=== PATIENT | female | born 1950 | race Caucasian/White ===

== ENCOUNTER 2019-10-01 08:16 | Outpatient (CLI) | payer MEDICARE ==
[2019-10-01 08:37] LABS: BASOPHILS % (AUTO) 0.9 %; EOSINOPHILS # (AUTO) 0.1 10^3/uL (0.0-0.7); HGB - HEMOGLOBIN 13.5 g/dL (12.0-16.0); LYMPHOCYTES # (AUTO) 1.9 10^3/uL (1.5-3.5); LYMPHOCYTES % (AUTO) 43.6 %; MEAN CORPUSCULAR HEMOGLOBIN 32.3 pg (27.0-31.0); MEAN CORPUSCULAR HGB CONC 33.8 g/dL (32.0-36.0); MEAN CORPUSCULAR VOLUME 95.5 fL (81.0-99.0); MEAN PLATELET VOLUME 10.6 fL (7.9-10.8); MONOCYTES # (AUTO) 0.5 10^3/uL (0.0-1.0); MONOCYTES % (AUTO) 10.3 %; NEUTROPHILS # (AUTO) 1.9 10^3/uL (1.5-6.6); PLT - PLATELET COUNT 228 10^3/uL (130-450); RED BLOOD COUNT 4.18 10^6/uL (4.20-5.40); RED CELL DISTRIBUTION WIDTH 12.8 % (12.0-15.0); WHITE BLOOD COUNT 4.5 x10^3/uL (4.8-10.8)
[2019-10-01 08:47] LABS: ALBUMIN 4.1 g/dL (3.2-5.5); ALBUMIN/GLOBULIN RATIO 1.6 (1.0-2.2); ALKALINE PHOSPHATASE 71 IU/L (42-121); ALT ALANINE AMINOTRANSFERASE 13 IU/L (10-60); AST ASPARTATE AMINOTRANSFERASE 15 IU/L (10-42); BILIRUBIN,TOTAL 1.6 mg/dL (0.2-1.0); BUN - BLOOD UREA NITROGEN 11 mg/dL (6-20); CALCIUM 9.2 mg/dL (8.5-10.3); CARBON DIOXIDE - CO2 26 mmol/L (21-32); CHLORIDE 106 mmol/L (101-111); CREATININE 0.6 mg/dL (0.4-1.0); CRP - C-REACTIVE PROTEIN < 1.0 mg/dL (0-1.0); GLUCOSE 99 mg/dL (70-100); SODIUM 139 mmol/L (135-145); TOTAL PROTEIN 6.6 g/dL (6.7-8.2)
== END 2019-10-01 08:17 | disposition home or self-care (01) ==
LOC: LAB 08:16
PROVIDERS: ATTEND Nurse Practitioner
DX: R13.10 Dysphagia, unspecified (principal)
CPT/HCPCS: 36415; 80053; 85025; 85651; 86140

== ENCOUNTER 2019-10-12 06:18 | Day surgery (SDC) | payer MEDICARE ==
[2019-10-12] MEDS ORDERED: fentaNYL 250 MCG/5 ML VIAL IVP ONE (06:19)
[2019-10-12] MEDS ORDERED: MIDAZOLAM 2 MG/2 ML VIAL IVP ONE (06:19)
[2019-10-12] MEDS ORDERED: LACTATED RINGERS 1,000 ML IV ONE ×2 (06:42→08:41)
[2019-10-12] MEDS ORDERED: LIDO GARGLE 30 ML BOTTLE ONE (07:20)
[2019-10-12] MEDS ORDERED: LIDO GARGLE 30 ML BOTTLE PO ONE (07:51)
[2019-10-12 09:11] VITALS: BP 125/52
== END 2019-10-12 06:19 | disposition home or self-care (01) ==
LOC: SDS 06:18
PROVIDERS: ATTEND Internal Medicine Gastroenterology
PROC: 0DJD8ZZ Inspection of Lower Intestinal Tract, Via Natural or Artificial Opening Endoscopic (ICD-10-PCS; principal; 2019-10-12 07:30)
PROC: 0DB48ZX Excision of Esophagogastric Junction, Via Natural or Artificial Opening Endoscopic, Diagnostic (ICD-10-PCS; 2019-10-12 07:30)
DX: Z12.11 Encounter for screening for malignant neoplasm of colon (principal); K21.0 Gastro-esophageal reflux disease with esophagitis; K44.9 Diaphragmatic hernia without obstruction or gangrene; R13.10 Dysphagia, unspecified; Z79.899 Other long term (current) drug therapy; Z87.891 Personal history of nicotine dependence
CPT/HCPCS: 43239; A9270; G0121; J3010; J7120

== ENCOUNTER 2019-10-30 13:13 | Outpatient (CLI) | payer MEDICARE ==
--- NOTE | 2019-10-30 16:31 | XRAY Report ---
PROCEDURE: Hip w/Pelvis 2-3V RT INDICATIONS: RT HIP PAIN, RT FOOT PAIN TECHNIQUE: AP pelvis with frog-leg lateral view of the right hip. COMPARISON: None. FINDINGS: Bones: No acute fractures or dislocations. Mild symmetric degenerative changes in the hips with mil d marginal osteophyte formation. Pelvic ring appears intact. No suspicious bony lesions. Degenerati ve changes are seen in the spine that are worse on the right. Soft tissues: The visualized bowel gas pattern is normal. Phleboliths are noted in the pelvis. IMPRESSION: No acute osseous abnormality. Mild symmetric degenerative changes in the hips. Degenerat darlin changes are also seen in the included lower lumbar spine. Reviewed by: Jonathan Blake MD on 10/30/2019 4:30 PM PDT Approved by: Jonathan Blake MD on 10/30/2019 4:30 PM PDT Station ID: [id number]
--- NOTE | 2019-10-30 16:32 | XRAY Report ---
PROCEDURE: Foot 3 View RT INDICATIONS: RT HIP PAIN, RT FOOT PAIN TECHNIQUE: 3 views of the foot were acquired. COMPARISON: None. FINDINGS: Bones: No acute fractures or dislocations. No suspicious bony lesions. A small plantar calcaneal s pur is present. Soft tissues: No suspicious soft tissue calcification. IMPRESSION: No acute fracture or dislocation. Small plantar calcaneal spur. Reviewed by: Jonathan Blake MD on 10/30/2019 4:31 PM PDT Approved by: Jonathan Blake MD on 10/30/2019 4:31 PM PDT Station ID: [id number]
== END 2019-10-30 13:14 | disposition home or self-care (01) ==
LOC: DI 13:13
PROVIDERS: ATTEND Nurse Practitioner Family
DX: M16.0 Bilateral primary osteoarthritis of hip (principal); M47.816 Spondylosis without myelopathy or radiculopathy, lumbar region; M77.31 Calcaneal spur, right foot

== ENCOUNTER 2020-02-15 09:54 | Outpatient (CLI) | payer MEDICARE ==
--- NOTE | 2020-02-15 10:24 | XRAY Report ---
PROCEDURE: Chest 2 View X-Ray INDICATIONS: DYSPNEA TECHNIQUE: 2 view(s) of the chest. COMPARISON: None. FINDINGS: Surgical changes and devices: None. Lungs and pleura: No pleural effusions or pneumothorax. Lungs are clear. Mediastinum: Mediastinal contours are normal. Heart size is normal. Bones and chest wall: No suspicious bony abnormalities. Soft tissues appear unremarkable. IMPRESSION: No acute cardiopulmonary process demonstrated radiographically. Reviewed by: Shaka Sethi MD on 02/15/2020 9:22 AM [facility] Approved by: Shaka Sethi MD on 02/15/2020 9:22 AM [facility] Station ID: [id number]
== END 2020-02-15 09:55 | disposition home or self-care (01) ==
LOC: DI 09:54
PROVIDERS: ATTEND Nurse Practitioner Family
DX: R06.00 Dyspnea, unspecified (principal)

== ENCOUNTER 2020-02-17 10:11 | Outpatient (CLI) | payer MEDICARE ==
--- NOTE | 2020-02-17 11:31 | Ultrasound Report ---
PROCEDURE: Head or Neck Soft Tissue INDICATIONS: ABN RESULTS OF THYROID FUNCTION STUDIES TECHNIQUE: Real-time scanning was performed of the thyroid gland, with image documentation. COMPARISON: None. FINDINGS: Right thyroid lobe measures 1.5 x 2.3 x 4.9 cm. The left thyroid lobe measures 1.7 x 1.9 x 4.9 cm. Th ere are innumerable bilateral thyroid nodules, most of which are hypoechoic with cystic spaces sugges tive of colloid. There is no overtly suspicious nodule to warrant FNA. IMPRESSION: Innumerable bilateral thyroid nodules consistent with multinodular goiter Reviewed by: Shaka Sethi MD on 02/17/2020 10:29 AM [facility] Approved by: Shaka Sethi MD on 02/17/2020 10:29 AM [facility] Station ID: [id number]
== END 2020-02-17 10:12 | disposition home or self-care (01) ==
LOC: DI 10:11
PROVIDERS: ATTEND Nurse Practitioner Family
DX: E04.2 Nontoxic multinodular goiter (principal)

== ENCOUNTER 2020-04-08 15:29 | Outpatient (CLI) | payer MEDICARE ==
--- NOTE | 2020-04-11 16:42 | Mammography Report ---
BILATERAL DIGITAL SCREENING MAMMOGRAM 3D/2D: 04/08/2020 CLINICAL: Routine screening. Comparison is made to exams dated: 06/03/2007 mammogram and 09/26/2006 mammogram - [facility]. There are scattered fibroglandular elements in both breasts. No significant masses, calcifications, or other findings are seen in either breast. There has been no significant interval change. IMPRESSION: NEGATIVE There is no mammographic evidence of malignancy. A 1 year screening mammogram is recommended. This exam was interpreted at Station ID: [id number]. NOTE: For mammograms, a report in lay terms will be sent to the patient. Approximately 15% of breast malignancies will not be visualized mammographically. In the management of a palpable breast mass, a negative mammogram must not discourage biopsy of a clinically suspicious lesion. Electronically Signed By: Jonathan Blake M.D. ar/penrad:04/08/2020 16:52:05 ACR BI-RADS Category 1: Negative 3341F PARENCHYMAL PATTERN: (A) - The breast(s) demonstrate(s) scattered fibroglandular densities. BI-RADS CATEGORY: (1) - 1 RECOMMENDATION: (ANNUAL) - Recommend routine annual screening mammography. [id number] 1 year screening LATERALITY: (B)
== END 2020-04-08 15:30 | disposition home or self-care (01) ==
LOC: DI 15:29
PROVIDERS: ATTEND Nurse Practitioner Family
DX: Z12.31 Encounter for screening mammogram for malignant neoplasm of breast (principal)

== ENCOUNTER 2020-08-15 09:34 | Outpatient (CLI) | payer MEDICARE ==
[2020-08-24 11:52] VITALS: BP 120/70
--- NOTE | 2020-08-24 11:52 | SLEEP CARE CONSULTATION ---
Information from patient questionnaire entered by Alize Burris. I have reviewed and concur with the information entered by Alize Burris. This document represents the service I personally performed and the decisions made by me, Birgit Fu MD, [facility]. History of Present Illness Service Date and Time: 08/15/2020 0934 Reason for Visit: New patient Chief Complaint: reports: Unrefreshed sleep, Fatigue Date of Onset: fatigue - 2 years, extreme fatigue - 9 months Usual bedtime: 10 pm Time it takes to fall asleep: 30 nminutes Snores at night: No Observed to quit breathing while asleep: No Number of times waking at night: 1 Reasons for waking at night: reports: Bathroom, Other (dog needs to go outside) Toss, Turn, or Twitch while sleeping: No Recalls having dreams: Yes Usually gets out of bed at: 7 am Feels refreshed in the morning: No Morning headache: Yes Sleepy or fatigued during the day: Yes Ever fallen asleep while driving: No Takes day naps: Yes (when possible) Prior sleep studies: No Additional HPI information: I have the pleasure of seeing Ms. Cardenas today regarding the possibility of her having obstructive sleep apnea. As you know, she is a 69 year old lady who complains of unrefreshed sleep and persistent fatigue for about 2 years. The patient tells me that she normally goes to bed around 10 pm, and it takes her approximately 30 minutes to fall asleep. She has not been told that she snores loudly or irregularly at night. She has never been observed to stop breathing in her sleep. However, she sleeps alone. She can recall waking up on the average of 1 time during the night. Most of the time she wakes up because of having to use the bathroom. She has never awakened because of her own snoring, choking, or having to gasp for air. There is not a lot of tossing and turning in her sleep. No somniloquy (sleep talking) or somnambulism (sleep walking). Generally, she can recall having dreams. In the morning she usually gets up out of the bed around 7 a.m. not feeling refreshed nor rested. She usually has a morning headache that goes away with a cup of coffee. During the day she complains of feeling fatigued. Her score on [place] Sleepiness Scale is 3 out o f 24. She never has fallen asleep while driving nor has had any accident due to sleepiness. She usually takes a nap during the day. Upon falling asleep during the day she denies having vivid dreams. She has never had sleep paralysis, experienced cataplexy or symptoms of restless leg syndrome. She reports having impaired concentration during the day. 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 Patient is Single and lives in [place]. Have you smoked in the past 12 months: No Cigarettes per day (20/pack): 20 Years of smokin Quit date: 1984 Smoking Pack Years: 12.0 Alcohol use: Yes Alcohol amount and frequency: 1 drink nightly Caffeine use: Yes Caffeine amount and frequency: 4 cups daily Family History Family history of sleep disordered breathing: Yes Family Hx Sleep Apnea: Mother: Snoring, Father: Snoring, Sibling: Sleep apnea - Treated Allergies and Home Medications Drug allergies reviewed: Yes Home medication list reviewed: Yes Review of Systems Weight loss over past 5 years: 20 (but regained with medication for hyperthyroidism Cardiovascular: denies: high blood pressure, palpitations, chest pain, irregular heart rate or pulse, leg or foot swelling, have to sleep sitting up, other Respiratory: denies: shortness of breath, wheeze, sputum production, chronic cough, other Gastrointestinal: reports: heartburn, diarrhea Urinary: denies: incontinence, frequency, urgency, impotence, other Neurological: reports: headaches Psychiatric: denies: Attention Deficit Hyperactivity, anxiety, depression, mood disorder, claustrophobia, other Ear/Nose/Throat: reports: nasal congestion, wisdom teeth removed Endocrine: reports: thyroid disease, sluggishness, too hot or cold Musculoskeletal: reports: joint pain, neck pain, back pain Immunologic: reports: sneezing Physical Exam Vital signs obtained and entered by: Dr. Fu Blood Pressure: 120/70 Cuff size: regular Heart Rate: 79 O2 Saturation: 97 Height: 5 ft 8 in Weight: 196 lb Body Mass Index: 29.7 BMI Classification: Overweight Neck circumference: 13.5 Mood/affect: normal HEENT: No craniofacial malformation Nostrils: patent to airflow Impression and Plan IMPRESSION: 1. Fatigue, for the past two years, most likely multifactorial Sleep may or may not be a contributing factor as she is not sleepy during the day ([place] Sleepiness Scale score is = 1 only). However, sleep disrupting conditions should be ruled out. Narrow oropharynx and obesity are common predisposing factors for obstructive sleep apnea-hypopnea syndrome. I recommend proceeding to polysomnography to confirm the diagnosis and to assess severity. If she has significant sleep disordered breathing, a manual CPAP titration study will also be performed to find the optimal treatment pressure. I informed the patient of what the sleep studies involve and after some discussion, she agreed to proceed. Plan: 1. Schedule polysomnography and return in 1 to 2 weeks after the study to discuss result and initiate therapy. Visit Type: In Office Time Spent with Patient (minutes): 15 Provider Statement: I spent 100% of the Face to Face Visit with the patient with greater than 50% spent counseling the patient and coordination of care.
== END 2020-08-15 09:35 | disposition home or self-care (01) ==
LOC: SC 09:34
PROVIDERS: ATTEND Internal Medicine Pulmonary Disease
DX: R53.83 Other fatigue (principal); E66.3 Overweight; Z68.29 Body mass index [BMI] 29.0-29.9, adult
CPT/HCPCS: 99202; G0463; 99212

== ENCOUNTER 2020-10-12 19:17 | Outpatient (CLI) | payer MEDICARE | END 2020-10-12 19:18 | disposition home or self-care (01) | LOC: SC 19:17 | PROVIDERS: ATTEND Internal Medicine Pulmonary Disease | DX: R53.83 Other fatigue (principal); G47.8 Other sleep disorders; R51.9 Headache, unspecified | CPT/HCPCS: 95810 ==

== ENCOUNTER 2020-11-01 09:05 | Outpatient (CLI) | payer MEDICARE ==
--- NOTE | 2020-11-01 09:54 | SLEEP CARE CONSULTATION ---
Information from patient questionnaire entered by Alize Burris. I have reviewed and concur with the information entered by Alize Burris. This document represents the service I personally performed and the decisions made by , Milli Jenkins ARNP. History of Present Illness Service Date and Time: 11/01/2020904 Initial [place] Sleepiness Scale score: 3 (in 2020) Current [place] Sleepiness Scale score: 3 Additional HPI information: DARRYL LLANOS returns for follow up and results of the recently performed polysomnography. The patient was informed of the following findings: No significant sleep disordered breathing with an average AHI of 2.2 and a junior oxygen saturation of 89%. She did not sleep supine during her study. I explained the pathophysiology behind obstructive sleep apnea. Patient does not have sleep apnea and was advised how weight gain could increase the risk of developing sleep apnea in the future. Patient has light to moderate snoring. Snoring can be reduced by weight loss. Weight loss is best achieved with diet consult. Patient instructed to contact PCP for referral. Snoring can also be treated with an oral appliance from a dentist. Advised to check insurance coverage. In addition, an ENT evaluation can be do to see if other treatment is indicated. Patient counseled not drink alcohol less than 4 hours before bedtime as it can increase snoring and apnea. Patient was cautioned about risks of drowsy driving until sleepiness symptoms resolve. Sleep Study - Results Type of Sleep Study: Polysomnography Prior sleep studies: No Polysomnography/Home Sleep Study results: IMPRESSION: The quality of the study is good. The patient had reduced sleep efficiency due to a prolonged awakening in the middle of the night. The sleep architecture was relatively normal considering the first-night effect. Respiratory monitoring showed no significant sleep disordered breathing (AHI = 2.2) or hypoxia (junior oxygen saturation of 89%). The patient did not sleep supine during this study (supine AHI = 0.0; non-supine = 2.24). Snore was light to moderate in intensity. There was no significant periodic leg movement of sleep. Cardiac rhythm was normal sinus rhythm without significant arrhythmia. No abnormal behavior (parasomnia) observed during the night. Allergies and Home Medications Home medication list reviewed: Yes (no changes) Review of Systems Review of systems same as previous: Yes (no changes) Physical Exam Heart Rate: 75 O2 Saturation: 96 Height: 5 ft 8 in Weight: 201 lb Body Mass Index: 30.5 BMI Classification: Obese Impression and Plan 1. Fatigue, unspecified. Possibly multi-factorial. Patient sleep study showing no sleep disordered breathing with an AHI of 2.2 sleeping mainly non-supine. She did not sleep supine during the study. We cannot rule out sleep apnea when sleeping supine. Patient mainly sleeps non-spine so this may not be contributing to her fatigue. She may follow up with her PCP for further evaluation of her fatigue. 2. Snoring but no significant sleep disordered breathing. Patient advised that often weight loss will reduce snoring as well as apnea risk. An oral appliance can also be used for snoring. This would require a dental consultation. Patient cautioned not to use other online appliances as can cause bite issues. A list of accredited dentists in area and one local dentist who makes oral appliances available in office. Patient is advised to check if insurance will cover. An ENT consult can also be helpful to determine if any other treatment is an option. * Follow up with PCP as needed for fatigue * Attempt to lose weight * Avoid alcohol consumption near bedtime * The patient is cautioned about driving until sleepiness is completely resolved. * Return as needed. Counseling Topics: Weight loss health impact Visit Type: In Office Time Spent with Patient (minutes): 14 Provider Statement: I spent 100% of the Face to Face Visit with the patient with greater than 50% spent counseling the patient and coordination of care.
== END 2020-11-01 09:06 | disposition home or self-care (01) ==
LOC: SC 09:05
PROVIDERS: ATTEND Nurse Practitioner Family
DX: R53.83 Other fatigue (principal); R06.83 Snoring; E66.9 Obesity, unspecified; Z68.30 Body mass index [BMI] 30.0-30.9, adult
CPT/HCPCS: 99212; G0463

== ENCOUNTER 2021-02-15 13:48 | Outpatient (CLI) | payer MEDICARE ==
[2021-02-15 14:30] LABS: ALBUMIN 4.4 g/dL (3.2-5.5); BILIRUBIN,DIRECT 0.1 mg/dL (0.1-0.5); TOTAL PROTEIN 6.6 g/dL (6.7-8.2)
== END 2021-02-15 13:49 | disposition home or self-care (01) ==
LOC: LAB 13:48
PROVIDERS: ATTEND Internal Medicine Endocrinology, Diabetes & Metabolism
DX: E05.90 Thyrotoxicosis, unspecified without thyrotoxic crisis or storm (principal)
CPT/HCPCS: 36415; 80076; 81599; 83520; 84481

== ENCOUNTER 2021-05-10 08:07 | Outpatient (CLI) | payer MEDICARE ==
[2021-05-10 08:23] LABS: BASOPHILS # (AUTO) 0.1 10^3/uL (0.0-0.1); BASOPHILS % (AUTO) 0.9 %; EOSINOPHILS # (AUTO) 0.1 10^3/uL (0.0-0.7); EOSINOPHILS % (AUTO) 1.8 %; HCT - HEMATOCRIT 41.3 % (37.0-47.0); HGB - HEMOGLOBIN 13.9 g/dL (12.0-16.0); LYMPHOCYTES # (AUTO) 2.7 10^3/uL (1.5-3.5); LYMPHOCYTES % (AUTO) 48.3 %; MEAN CORPUSCULAR HGB CONC 33.7 g/dL (32.0-36.0); MEAN CORPUSCULAR VOLUME 98.1 fL (81.0-99.0); MEAN PLATELET VOLUME 10.2 fL (7.9-10.8); MONOCYTES # (AUTO) 0.4 10^3/uL (0.0-1.0); MONOCYTES % (AUTO) 7.5 %; NEUTROPHILS # (AUTO) 2.3 10^3/uL (1.5-6.6); NEUTROPHILS % (AUTO) 41.5 %; PLT - PLATELET COUNT 257 10^3/uL (130-450); RED BLOOD COUNT 4.21 10^6/uL (4.20-5.40); RED CELL DISTRIBUTION WIDTH 12.9 % (12.0-15.0); WHITE BLOOD COUNT 5.5 x10^3/uL (4.8-10.8)
[2021-05-10 08:44] LABS: % IRON SATURATION 25 % (20-50); ALBUMIN 4.3 g/dL (3.2-5.5); ALBUMIN/GLOBULIN RATIO 1.7 (1.0-2.2); ALKALINE PHOSPHATASE 96 IU/L (42-121); ALT ALANINE AMINOTRANSFERASE 12 IU/L (10-60); AST ASPARTATE AMINOTRANSFERASE 17 IU/L (10-42); BILIRUBIN,TOTAL 1.1 mg/dL (0.2-1.0); BUN - BLOOD UREA NITROGEN 8 mg/dL (6-20); CALCIUM 9.3 mg/dL (8.5-10.3); CARBON DIOXIDE - CO2 25 mmol/L (21-32); CHLORIDE 107 mmol/L (101-111); CREATININE 0.8 mg/dL (0.4-1.0); GFR - MDRD 71 (>89); GLUCOSE 94 mg/dL (70-100); IRON 103 ug/dL (28-170); POTASSIUM 4.1 mmol/L (3.5-5.0); SODIUM 141 mmol/L (135-145); TOTAL IRON BINDING CAPACITY 420 ug/dL (250-450); TOTAL PROTEIN 6.9 g/dL (6.7-8.2); TRANSFERRIN 300 mg/dL (192-382)
[2021-05-10 08:45] LABS: CRP - C-REACTIVE PROTEIN < 1.0 mg/dL (0-1.0)
[2021-05-10 08:56] LABS: THYROID STIMULATING HORMONE 4.35 uIU/mL (0.34-5.60)
[2021-05-10 08:58] LABS: FREE T4 (FREE THYROXINE) 0.83 ng/dL (0.58-1.64)
== END 2021-05-10 08:08 | disposition home or self-care (01) ==
LOC: LAB 08:07
PROVIDERS: ATTEND Internal Medicine Endocrinology, Diabetes & Metabolism
DX: R51.9 Headache, unspecified (principal); D75.89 Other specified diseases of blood and blood-forming organs; E05.90 Thyrotoxicosis, unspecified without thyrotoxic crisis or storm
CPT/HCPCS: 36415; 80053; 81599; 83520; 83540; 84439; 84443; 84466; 85025; 85651; 86140

== ENCOUNTER 2021-06-13 08:49 | Outpatient (CLI) | payer MEDICARE ==
--- NOTE | 2021-06-13 17:49 | CT Report ---
PROCEDURE: Sinuses INDICATIONS: FACIAL PAIN, HEADACHE, CHRONIC PANSINUSITIS TECHNIQUE: Noncontrast 3.0 mm axial images acquired from the frontal sinuses to the mid-sella, with coronal and sagittal reformats. For radiation dose reduction, the following was used: automated exposure control , adjustment of mA and/or kV according to patient size. COMPARISON: None. FINDINGS: Image quality: Excellent. Maxillary Sinuses: No bony remodeling or destruction. Sinuses are clear. Ethmoid Air Cells: No bony remodeling or destruction. Sinuses are clear. Sphenoid Sinuses: No bony remodeling or destruction. Sinuses are clear. Frontal Sinuses: No bony remodeling or destruction. Sinuses are clear. Ostiomeatal Complexes: Ostiomeatal complexes are patent, yet they are constitutionally narrowed, wit h bilateral Brenna cells. Miscellaneous: Visualized intra-orbital contents are normal. Bilateral renée bullosa can be seen. T he left conchal bullosa is opacified. There is mild rightward nasal septal deviation. Focal degenerat darlin change can be seen involving both temporomandibular joints. IMPRESSION: No significant active paranasal sinus disease is seen. Constitutionally narrowed ostiomeatal complexes, with bilateral Brenna cells. Mild lateral renée bullosa can be seen. The left conchal bullosa is opacified. Mild rightward nasal septal deviation is seen. Focal improvement of degenerative change can be seen. Reviewed by: Flo Bailey MD on 06/13/2021 4:47 PM [id number] Approved by: Flo Bailey MD on 06/13/2021 4:47 PM [facility] Station ID: [id number]
== END 2021-06-13 08:50 | disposition home or self-care (01) ==
LOC: DI 08:49
PROVIDERS: ATTEND Otolaryngology
DX: R51.9 Headache, unspecified (principal)

== ENCOUNTER 2021-07-13 07:53 | Outpatient (CLI) | payer MEDICARE ==
[2021-07-13 08:41] LABS: THYROID STIMULATING HORMONE 3.65 uIU/mL (0.34-5.60)
[2021-07-13 08:43] LABS: FREE T4 (FREE THYROXINE) 0.84 ng/dL (0.58-1.64)
== END 2021-07-13 07:54 | disposition home or self-care (01) ==
LOC: LAB 07:53
PROVIDERS: ATTEND Internal Medicine Endocrinology, Diabetes & Metabolism
DX: E05.90 Thyrotoxicosis, unspecified without thyrotoxic crisis or storm (principal)
CPT/HCPCS: 36415; 84439; 84443

== ENCOUNTER 2021-07-24 09:55 | Outpatient (CLI) | payer MEDICARE ==
--- NOTE | 2021-07-24 13:09 | MRI Report ---
PROCEDURE: MRI cervical spine without contrast INDICATIONS: POSTMENOPAUSAL, CERVICAL SPINE STENOSIS TECHNIQUE: Noncontrast sagittal T1 spin echo and T2 fast spin echo, sagittal STIR, foraminal oblique sagittal T2 fast spin echo, and axial gradient echo or T2 fast spin echo through the cervical spine. COMPARISON: None. FINDINGS: Image quality: Excellent. Alignment and Curvature: There is normal bony alignment. Bone Marrow: Marrow demonstrates normal overall signal. Spinal Cord: Visualized spinal cord has normal size and signal. No cerebellar tonsillar herniation. Paraspinous Soft Tissues: No paravertebral masses. Prevertebral soft tissues are normal in thicknes s. C2-C3: Disc height is preserved. No central or foraminal stenosis. C3-C4: Disc space narrowing and posterior disc osteophyte complex results in mild central stenosis. No foraminal stenosis. C4-C5: Disc space narrowing with posterior disc osteophyte complex results in mild to moderate centr al stenosis. No right foraminal stenosis. Moderate left foraminal stenosis. C5-C6: Disc space narrowing and posterior disc osteophyte complex results in moderate central stenos is with flattening the ventral cervical cord. Mild left and no right foraminal stenosis. C6-C7: Disc space narrowing and posterior disc aspect complex results in mild central stenosis. No f oraminal stenosis. C7-T1: Normal in appearance. IMPRESSION: Multilevel degenerative disc disease and arthropathy results in varying degrees of central and forami nal stenosis including moderate central stenosis at C5-6 Reviewed by: Brent Yeh MD on 07/24/2021 12:08 PM [facility] Approved by: Brent Yeh MD on 07/24/2021 12:08 PM [facility] Station ID: [id number]
--- NOTE | 2021-07-24 17:14 | DEXA Report ---
PROCEDURE: Dexa Spine and/or Hip INDICATIONS: POSTMENOPAUSAL, CERVICAL SPINE STENOSIS TECHNIQUE: Dual energy x-ray absorptiometry (DXA) was performed on a [employer] System. Regions measur ed are the AP Spine, femoral neck, and if needed forearm. COMPARISON: None. FINDINGS: Lumbar Spine: Bone Mineral Density 1.159 g/cm/cm,T score -0.2 Left Hip: Bone Mineral Density 0.853 g/cm/cm,T score -1.2 Left Femoral Neck: Bone Mineral Density 0.845 g/cm/cm, T score -1.4 (T score greater or equal to -1.0: NORMAL) (T score from -1.1 to -2.4: OSTEOPENIA) (T score less than or equal to -2.5 to: OSTEOPOROSIS) Impression: Osteopenia Patients with diagnosis of osteoporosis or osteopenia should have regular bone mineral density assess ment. For those eligible for Medicare, routine testing is allowed once every 2 years. Testing frequ ency can be increased for patients who have rapidly progressing disease or for those who are receivin g medical therapy to restore bone mass. Reviewed by: Reji Lewis MD on 07/24/2021 5:12 PM PDT Approved by: Reji Lewis MD on 07/24/2021 5:12 PM PDT Station ID: [id number]
== END 2021-07-24 09:56 | disposition home or self-care (01) ==
LOC: DI 09:55
PROVIDERS: ATTEND Nurse Practitioner Family
DX: Z78.0 Asymptomatic menopausal state (principal); M85.89 Other specified disorders of bone density and structure, multiple sites; M47.812 Spondylosis without myelopathy or radiculopathy, cervical region; M99.71 Connective tissue and disc stenosis of intervertebral foramina of cervical region; M48.02 Spinal stenosis, cervical region

== ENCOUNTER 2021-08-25 08:26 | Outpatient (CLI) | payer MEDICARE ==
[2021-08-25 09:48] LABS: BILIRUBIN,DIRECT 0.1 mg/dL (0.1-0.5); BILIRUBIN,TOTAL 1.1 mg/dL (0.2-1.0)
[2021-08-25 09:50] LABS: FERRITIN 16.4 ng/mL (11.0-306.8)
--- NOTE | 2021-08-25 11:35 | XRAY Report ---
PROCEDURE: Hips 4V BILAT INDICATIONS: LEFT HIP PAIN, LOW BACK PAIN TECHNIQUE: 4 views of the right hip and left hip were acquired. COMPARISON: 11/30/2019. FINDINGS: Bones: No fractures or dislocations. No suspicious bony lesions. The visualized pelvic ring appear s intact. Mild bilateral hip osseous hypertrophy compatible with mild osteoarthritis. Soft tissues: No suspicious soft tissue masses. Phleboliths. IMPRESSION: Mild bilateral hip osteoarthritis. Reviewed by: Esther Crain MD, PhD on 08/25/2021 11:34 AM PDT Approved by: Esther Crain MD, PhD on 08/25/2021 11:34 AM PDT Station ID: [id number]
--- NOTE | 2021-08-25 11:37 | XRAY Report ---
PROCEDURE: Lumbar Spine 2 View INDICATIONS: LEFT HIP PAIN, LOW BACK PAIN TECHNIQUE: 2 views of the lumbar spine were acquired. COMPARISON: None. FINDINGS: Bones: 5 [id number] vertebrae are present. There is approximate 5 mm of L3-L4 retrolisthesis. There is mild convex right lumbar spine scoliosis. No vertebral body compression fractures. No suspi cious bony lesions. Moderate degenerative changes noted throughout the lumbar spine. Moderate L5-S1 f acet hypertrophy. Mild L1-L2, L2-L3 F L4 and L4-L5 facet hypertrophy. Soft tissues: Overlying bowel gas pattern is normal. No suspicious soft tissue calcifications. IMPRESSION: 1. Multilevel degenerative disc disease. 2. Multilevel facet arthropathy. 3. No fracture. No acute osseous lesion. If there is continued clinical concern for pathology, then M RI should be considered for further evaluation. Reviewed by: Esther Crain MD, PhD on 08/25/2021 11:36 AM PDT Approved by: Esther Crain MD, PhD on 08/25/2021 11:36 AM PDT Station ID: [id number]
== END 2021-08-25 08:27 | disposition home or self-care (01) ==
LOC: DI 08:26
PROVIDERS: ATTEND Nurse Practitioner Family
DX: M16.0 Bilateral primary osteoarthritis of hip (principal); M47.816 Spondylosis without myelopathy or radiculopathy, lumbar region; M47.817 Spondylosis without myelopathy or radiculopathy, lumbosacral region; M51.36 Other intervertebral disc degeneration, lumbar region; M41.9 Scoliosis, unspecified; M51.37 Other intervertebral disc degeneration, lumbosacral region; M85.80 Other specified disorders of bone density and structure, unspecified site; R17 Unspecified jaundice; R79.0 Abnormal level of blood mineral
CPT/HCPCS: 36415; 82247; 82248; 82306; 82728; 83540; 83970; 84466

== ENCOUNTER 2022-02-16 08:40 | Outpatient (CLI) | payer MEDICARE ==
[2022-02-16 09:34] LABS: THYROID STIMULATING HORMONE 3.2 uIU/mL (0.34-5.60)
[2022-02-16 09:35] LABS: FREE T3 2.49 pg/mL (2.5-3.9)
[2022-02-16 09:36] LABS: FREE T4 (FREE THYROXINE) 0.76 ng/dL (0.58-1.64)
== END 2022-02-16 08:41 | disposition home or self-care (01) ==
LOC: LAB 08:40
PROVIDERS: ATTEND Internal Medicine Endocrinology, Diabetes & Metabolism
DX: E05.90 Thyrotoxicosis, unspecified without thyrotoxic crisis or storm (principal)
CPT/HCPCS: 36415; 81599; 83519; 84439; 84443; 84481